=== PATIENT | male | born 1980 | race Two or more races ===

== ENCOUNTER 2020-06-18 11:55 | Emergency (ER) | payer OTHER | END 2020-06-18 19:54 | disposition other institution (70) | LOC: FER 11:55 | DX: S52.501B Unspecified fracture of the lower end of right radius, initial encounter for open fracture type I or II (principal); Z23 Encounter for immunization; W29.4XXA Contact with nail gun, initial encounter; Y92.89 Other specified places as the place of occurrence of the external cause; Y99.0 Civilian activity done for income or pay; Z20.822 Contact with and (suspected) exposure to COVID-19 | CPT/HCPCS: 73090; 90471; 90715; J0690; J1170; J2405; J7030; U0002 ==